=== PATIENT | female | born 1990 | race Caucasian/White ===

== ENCOUNTER 2018-03-19 06:38 | Day surgery (SDC) | payer OTHER ==
[2018-03-19] MEDS ORDERED: LIDOCAINE 1% 300 MG/30 ML SDV ONE (07:25)
[2018-03-19] MEDS ORDERED: LR 1,000 ML IV ONE (07:47)
[2018-03-19] MEDS ORDERED: SCOPOLAMINE HYDROBROMIDE 1 MG/3 DAYS PATCH TD ONE (07:51)
[2018-03-19] MEDS ORDERED: MIDAZOLAM 2 MG/2 ML VIAL IVP ONE (07:56)
--- NOTE | 2018-03-19 07:59 | PDANEPAE ---
ANE History of Present Illness 27 yo with cyst ANE Past Medical History - Cardiovascular History Hx Hypertension: No Hx Arrhythmias: No Hx Chest Pain: No Hx Coronary Artery / Peripheral Vascular Disease: No Hx CHF / Valvular Disease: No Hx Palpitations: No - Pulmonary History Hx COPD: No Hx Asthma/Reactive Airway Disease: No Hx Recent Upper Respiratory Infection: No Hx Oxygen in Use at Home: No Hx Sleep Apnea: No Sleep Apnea Screening Result - Last Documented: Negative - Neurologic History Hx Cerebrovascular Accident: No Hx Seizures: No Hx Dementia: No - Endocrine History Hx Diabetes: No - Renal History Hx Renal Disorders: No - Liver History Hx Hepatic Disorders: No - Neurological & Psychiatric Hx Hx Neurological and Psychiatric Disorders: No - Cancer History Hx Cancer: No - Congenital Disorder History Hx Congenital Disorders: No - GI History Hx Gastrointestinal Disorders: No - Other Health History Other Health History: none - Chronic Pain History Chronic Pain: No - Surgical History Prior Surgeries: none ANE Review of Systems Review of systems is: negative Review of Systems: - Exercise capacity METS (RN): 5 METS ANE Patient History - Allergies Allergies/Adverse Reactions: No Known Allergies Allergy (Verified 02/22/18 10:22) - Home Medications Home medications: home medication list seen and reviewed Home Medications: Control 02/22/18 [Last Taken Unknown] - NPO status NPO Status: no food or drink >8 hours NPO Since - Liquids (Date): 03/18/18 NPO Since - Liquids (Time): 00:00 NPO Since - Solids (Date): 03/18/18 NPO Since - Solids (Time): 00:00 - Anes Hx Anes Hx: post operative nausea and vomiting - Smoking Hx Smoking Status: Never smoked - Family Anes Hx Family Hx Anesthesia Complications: unknown ANE Labs/Vital Signs - Vital Signs Blood Pressure: 105/72 Heart Rate: 52 Respiratory Rate: 14 O2 Sat (%): 99 Height: 170.18 cm Weight: 60.781 kg ANE Physical Exam - Airway Neck exam: FROM Mallampati Score: Class 1 Mouth exam: normal dental/mouth exam - Pulmonary Pulmonary: no respiratory distress - Cardiovascular Cardiovascular: regular rate and rhythym - ASA Status ASA Status: I ANE Anesthesia Plan Anesthesia Plan: GA w LMA
[2018-03-19] MEDS ORDERED: SCOPOLAMINE HYDROBROMIDE 1 MG/3 DAYS PATCH TD SCH (08:00)
--- NOTE | 2018-03-19 08:13 | PDHPUP ---
History & Physical Update H&P update statement: This history and physical update is based on an assessment of the patient which was completed after admission or registration (within 24 hours), but prior to the surgery/procedure. H&P update: H&P reviewed & patient examined, no change in patient's condition since H&P completed
[2018-03-19] MEDS ORDERED: PROPOFOL/EMULSION 500 MG/50 ML BOTTLE IV ONE (08:21)
[2018-03-19] MEDS ORDERED: fentaNYL 100 MCG/2 ML INJ ONE (08:33)
[2018-03-19] MEDS ORDERED: fentaNYL 100 MCG/2 ML INJ IVP PRN (09:18)
[2018-03-19] MEDS ORDERED: NALOXONE HCL 0.4 MG/ML INJ IVP PRN (09:18)
[2018-03-19] MEDS ORDERED: PROMETHAZINE HCL 25 MG/ML INJ IVP PRN (09:18)
[2018-03-19] MEDS ORDERED: ONDANSETRON 4 MG/2 ML VIAL IVP PRN (09:18)
--- NOTE | 2018-03-19 09:20 | POSTANESTH ---
Post Anesthetic Evaluation Cardiovascular Status: Normal, Stable Respiratory Status: Normal, Stable Level of Consciousness/Mental Status: Can Participate in Eval Pain Control: Adequate, Prn Tx Ordered Nausea/Vomiting Control: Adequate, Prn Tx Ordered Complications Possibly Related to Anesthesia: None Noted
--- NOTE | 2018-03-19 09:54 | POSTOPPROG ---
Post Op Note Date of Operation: 03/19/18 Surgeon: Jada Ward Anesthesiologist: Boris Warm Anesthesia: LMA Pre-op Diagnosis: Bartholin bland absess Post-op Diagnosis: same Indication: recurrent development of absess Procedure: I &D and marsupialization of bartholin gland Findings: left [place] absess Inf/Abcess present in the surg proc area at time of surgery?: No EBL: Minimal
[2018-03-19 11:20] VITALS: BP 117/71
--- NOTE | 2018-03-19 11:50 | GOP ---
[f rep st] OPERATIVE REPORT DATE OF OPERATION: 03/19/2018 SURGEON: Jada Ward MD ANESTHESIA: General with LMA. ANESTHESIOLOGIST: Mike Jack MD PREOPERATIVE DIAGNOSIS: Recurrent Bartholin gland abscess. POSTOPERATIVE DIAGNOSIS: Recurrent Bartholin gland abscess. PROCEDURE PERFORMED: Incision and drainage of recurrent Bartholin gland abscess plus marsupializatio n to prevent further development. FINDINGS: A very large swollen left Bartholin gland abscess with 2 or 3 scarred previous incision si td. ESTIMATED BLOOD LOSS: Minimal. INDICATIONS: Patient is a 27-year-old who has been into the office over the last 2-3 years with rede velopment of Bartholin gland abscess, has become very frustrated, and now wants to have it surgically drained and hopefully have the duct marsupialized in order to prevent recurrence. DESCRIPTION OF PROCEDURE: With informed consent signed, patient taken to the operating room, placed under general anesthesia, placed in the low dorsal lithotomy position, prepped and draped in the usua l sterile fashion. The area was injected with about 12 cc of 1% lidocaine with epi, and the stab inc ision was made at 5 o'clock at the introitus, and cloudy mucousy material drained out. Then the stab incision was X'd to help with the marsupialization. The Melba clamp was placed through the stab inc ision up into the Bartholin gland to ensure that there were no loculated areas so that the entire abs cess was cleaned out. Then the previously drained abscess was irrigated copiously with normal saline , about a liter's worth, and then the edges of the X'd area at the introitus were approximated back w ith 3-0 Vicryl of single interrupted sutures x3 to bring back the edges. Then the gland area was pac ked with iodoform packing. Once it was felt that there was no residual bleeding, the patient was heidi izabela in supine position, awakened in the operating room, taken to recovery room in stable condition. Tolerated the procedure well. COMPLICATIONS: None. /[id number]/MODL
[2018-03-22] MEDS ORDERED: PATCH REMOVAL 1 EA PATCH TD SCH (07:57)
== END 2018-03-19 10:55 | disposition home or self-care (01) ==
LOC: FSGY 06:38
PROVIDERS: ATTEND Obstetrics & Gynecology Gynecology
PROC: 0U9L0ZZ Drainage of Vestibular Gland, Open Approach (ICD-10-PCS; principal; 2018-03-19 08:00)
DX: N75.1 Abscess of Bartholin's gland (principal)
CPT/HCPCS: J0171; J2250; J2704; J3010